=== PATIENT | male | born 1995 | race Asian ===

== ENCOUNTER 2018-10-11 05:41 | Day surgery (SDC) | payer OTHER ==
--- NOTE | 2018-10-07 06:52 | HP ---
CC: Dr. Volodymyr Alvarez, 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 Mr. Benson was not circumcised at . He had some problems with his foreskin with some episodes of mild balanitis that resolved spontaneously. He also has noted the hair being stuck under the foreskin and making him uncomfortable. He has explored his options for the condition and he wanted to have a circumcision done. The patient denies any episodes of urinary tract infection. He does not have phimosis, no problems with retraction of the foreskin. PAST MEDICAL HISTORY AND SYSTEM REVIEW: He is in excellent health. MEDICATIONS: He is on no chronic medications. ALLERGIES: He reports being allergic to PENICILLIN, which gives him a rash. REVIEW OF SYSTEMS: He denies any cardiac or pulmonary diseases or symptoms. PHYSICAL EXAMINATION GENERAL: He is a pleasant and healthy-looking male. VITAL SIGNS: Blood pressure 130/70, pulse of 100. LUNGS: Clear. HEART: Regular and rhythmic. No murmurs. ABDOMEN: Soft, no masses, no tenderness and no CVA tenderness. EXTERNAL GENITALIA: He has a redundant foreskin. There is no phimosis. No changes of balanitis. No penile lesions. The urethral meatus looks normal. Both testes feel normal in size and consistency. No inguinal hernia noted. IMPRESSION: Redundant foreskin, moderately symptomatic. History of mild episodes of balanitis. PLAN: Plan is for circumcision as per the patient's wishes. He understands that he can have the option of conservative management with hygiene and trimming his pubic hair, which can help with the condition. He, however, wants to proceed with the circumcision. I discussed the procedure in detail. Some of the potential complications including small incidence of infection and bleeding were discussed. All his questions were answered. [id number]/[facility] #: [id number] DEBBIE
[~2018-10-11 05:41] MED LIST: Buffered Lidocaine 1% SYRIN* 1 ML/SYRINGE INTRADERM ONE; Lactated Ringers 1000 ML Bag* 1,000 ML IV SCH
[2018-10-11] MEDS ORDERED: Buffered Lidocaine 1% SYRIN* 1 ML/SYRINGE INTRADERM ONE (06:36)
[2018-10-11] MEDS ORDERED: Lidocaine 2% JELLY* 20 ML (for OR use) ONE (06:46)
[2018-10-11] MEDS ORDERED: Bacitracin OINTMENT* 0.5% 0.5 oz TUBE ONE (06:46)
[2018-10-11] MEDS ORDERED: Lidocaine 1% INJ* 10 MG/ML 30 ML SDV ONE (06:46)
[2018-10-11] MEDS ORDERED: Bupivacaine 0.5%* 50 ML VIAL ONE (06:46)
[2018-10-11] MEDS ORDERED: fentaNYL* 50 MCG/ML 2 ML VIAL (100 MCG VIAL) ONE (07:25)
[2018-10-11] MEDS ORDERED: Midazolam* 1 MG/ML 5 ML VIAL (5 MG) ONE (07:25)
[2018-10-11] MEDS ORDERED: Naloxone* 0.4 MG/ML 1 ML VIAL IV PRN (07:52)
[2018-10-11] MEDS ORDERED: Ondansetron INJ* 2 MG/ML VIAL IV PRN (07:52)
[2018-10-11] MEDS ORDERED: Acetaminophen TAB* 325 MG PO PRN (07:52)
[2018-10-11] MEDS ORDERED: Ibuprofen TAB* 600 MG PO PRN (07:52)
[2018-10-11] MEDS ORDERED: Propofol* 10 MG/ML 20 ML BTL ONE (08:20)
[2018-10-11] MEDS ORDERED: Ibuprofen TAB* 600 MG ONE (09:15)
[2018-10-11 09:18] VITALS: BP 123/85
--- NOTE | 2018-10-11 10:21 | OP ---
CC: [facility] OPERATIVE REPORT: DATE OF OPERATION: 10/11/18 DATE OF : 89 SURGEON: Wilson Link MD ANESTHESIOLOGIST: Dr. Gomez. ANESTHESIA: IV sedation with MAC and local. PRE-OP DIAGNOSIS: POST-OP DIAGNOSIS: OPERATIVE PROCEDURE: Circumcision. INDICATIONS: Mr. Benson is a 23-year-old male who was referred from [facility] because of wide, redundant foreskin and episodes of minimal balanitis. The condition has been bothersome to the patient and after discussing the options, including conservative management he wanted to proceed with the circumcision. PATHOLOGY: There was a wide, redundant foreskin. There was no phimosis and no penile lesions noted. DESCRIPTION OF PROCEDURE: With intravenous sedation, and anesthesia monitoring , the patient was placed in the supine position and was prepped and draped for circumcision. a total of 16 cc of 0.5% Marcaine without epinephrine were used as penile block achieving very good anesthesia. A circumferential incision was carried on the skin aspect of the foreskin at the level of the grimaldo. The foreskin was then retracted and an incision was carried in the mucous membrane aspect of the foreskin about 1 cm proximal and parallel to the grimaldo. The frenulum was superficially divided preserving the frenular artery and nerve. The bleeders were electrocoagulated and controlled. The foreskin was then excised using cautery, and full hemostasis was achieved. The stump of the foreskin was then approximated using interrupted sutures of 4- 0 chromic. The final result looked very satisfactory. There was very good hemostasis. Antibiotic ointment was applied over the incision and a gentle circular dressing was applied. The patient tolerated the procedure well and left the operating room in good condition. [id number]/[facility] #: [id number] [facility]
== END 2018-10-11 11:08 | disposition home or self-care (01) ==
LOC: OR 05:41
PROVIDERS: ATTEND Urology
DX: N48.1 Balanitis (principal)
CPT/HCPCS: 88304; A9270-GY; J2250; J2704; J3010